=== PATIENT | female | born 1995 | race Caucasian/White ===

== ENCOUNTER 2017-10-17 17:29 | Emergency (ER) | payer BC ==
[~2017-10-17] VITALS: Ht 162.6 cm; Wt 63.4 kg
[~2017-10-17 17:29] MED LIST: AMOX875T3 PO; BCPILLS PO; LXP10 PO
[2017-10-17 17:41] VITALS: Ht 162.6 cm; Wt 63.4 kg
[2017-10-17] MEDS ORDERED: ONDA4TAB10 SL (18:49)
[2017-10-17] MEDS ORDERED: OMEP20CA59 PO (18:49)
--- NOTE | 2017-10-17 19:29 | EMERGENCY ROOM VISIT NOTE ---
History First contact with patient: 17:50 Chief Complaint: GI ASSESSMENT Stated Complaint: STOMACH PAIN,VOMITING UP MILD BLOOD Nursing Triage Summary: patient with week history of vomiting blood was seen at [facility] for this, they set up a GI assessment but today she vomited blood again and got scared. she states she has a burning in the stomach and the nasuea comes on quickly and then vomits and feels better History of Present Illness The patient is a 22 year old female who presents to the Emergency Room with complaints of a single episode of bloody emesis 6 days ago. This was only a one -time event. The patient reports that she did drink alcohol the night before, and has had an adverse reaction of nausea and vomiting when drinking alcohol in the past. The patient reports that she did notice some blood in her sputum today with nausea and epigastric pain. She did not have any vomiting today. The patient comes to the emergency department at the request of her parents. The patient was seen and examined at [facility] on Sunday with lab workup is normal. The only thing new that the patient has taken by mouth is minocycline for facial acne. This was started last week. [facility] was not sure if that is what has caused stomach irritation. 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 She also has a brother who recently relapsed with cocaine abuse, and his back and therapy. This has caused a lot of distress with the patient and family. The patient denies any prior history of peptic ulcers. She has occasionally had reflux in the past, again usually associated with alcohol. The patient denies any significant alcohol consumption this semester. She also denies any recent upper respiratory infection, cough, chest pain, shortness of breath, back pain, urinary symptoms or diarrhea. She reports that her stool has looked darker lately. She does not recall any medications or foods that could be darkening her stool. She rates her abdominal discomfort a 3 out of 10, and currently denies any nausea. Review of Systems HEENT: Denies dizziness, visual problems, hearing loss, tinnitus. Denies difficulty swallowing or oral lesions. PULMONARY: Denies cough, shortness of breath, sputum production or hemoptysis. CARDIOVASCULAR: Denies chest pain, palpitations, dyspnea on exertion, orthopnea or peripheral edema. GASTROINTESTINAL: See history of present illness. GENITOURINARY: Denies dysuria, frequency, urgency or nocturia. NEUROLOGIC: Denies history of epilepsy, CVA, TIA or chronic headaches. MUSCULOSKELETAL: Denies history of joint tenderness/swelling. SKIN: Denies rashes or lesions. PSYCHIATRIC: Denies history of depression or mental illness. ENDOCRINE: Denies history of diabetes or thyroid disorders. Past Medical/Surgical History Medical Problems: (1) Acne vulgaris Surgical Problems: (1) No history of previous surgery Family History FH: cancer FH: diabetes mellitus Social History Smoking Status: Never Smoker Alcohol Use: occasionally Marital Status: single, in relationship Housing Status: lives with roommate Occupation Status: [employer] student Current/Historical Medications Scheduled Control Pills ( Control Pills), 1 TAB PO DAILY Escitalopram Oxalate (Escitalopram Oxalate), 20 MG PO DAILY Omeprazole (Prilosec), 20 MG PO DAILY Ondasetron Odt (Zofran Odt), 4 MG SL Q6H Physical Exam Vital Signs Date Time Temp Pulse Resp B/P (MAP) Pulse Ox O2 Delivery O2 Flow Rate FiO2 10/17/17 17:41 36.8 89 20 138/87 99 Room Air Physical Exam CONSTITUTIONAL: Healthy and well nourished. Alert and oriented X 3 with positive affect. Patient does not appear in any acute distress. HEENT: Normocephalic, atraumatic. Pupils equal, round and reactive. No conjunctival injection or scleral icterus. OROPHARYNX: No posterior oropharyngeal erythema or postnasal bleed. NECK: Full active range of motion without discomfort. RESPIRATORY: Clear to auscultation bilaterally with no wheezing, crackles, rhonchi or stridor. CARDIOVASCULAR: Regular rate and rhythm with no murmurs, rubs or gallops. GASTROINTESTINAL: Bowel sounds present in all quadrants. Should has minimal epigastric tenderness to palpation. Negative Mario sign. Negative McBurney's point tenderness. Negative CVA tenderness. No abdominal rigidity, guarding or rebound. MUSCULOSKELETAL: Full range of motion of all joints without discomfort. INTEGUMENTARY: No rash or other significant dermatologic conditions noted. HEMATOLOGIC: No ecchymosis or petechiae noted. NEUROLOGIC: No focal neurologic deficits noted. Medical Decision & Procedures Laboratory Results Test 10/17/17 18:51 ED Course Patient history and physical exam were performed. Nurse's notes were reviewed. Vital signs were reviewed and were normal. The patient does have a copy of her labs on her cell phone. These were personally reviewed by me, showing lab work that was performed proximal to 48 hours ago. Her CMP was completely normal , including normal LFTs, lipase and amylase. Her CBC was also normal with a white count of 6.9, hemoglobin 13.3, hematocrit 41, platelet 275 and normal differential. A reference lab ferritin level was also normal at 15. The patient was able to provide a stool sample in the emergency department, and stool Hemoccult was negative. I did order H. pylori stool antigen testing as well. At this point, the patient was advised that her symptoms appear to be stable. Although this could certainly be an alcoholic gastritis, I do suspect that the patient has a bleeding gastric ulcer given her stress level. The patient was provided a prescription for Prilosec 20 mg daily 30 days, and Zofran ODT if needed for nausea. She was encouraged to refrain from alcohol, caffeine and NSAIDs. She may also take Zantac and Maalox/Gaviscon if needed for additional symptomatic relief. The patient reports that she does have an appointment scheduled with [facility] gastroenterology on 11/01. She was also provided contact information for the [facility] gastroenterology office (Dr. Luo). She was instructed to return to the emergency department for any progressively worsening pain, coffee-ground emesis , bloody/melanotic stools, chest pain, shortness of breath, weakness or other concerning symptoms. The patient was happy with plan of care, and denied any discomfort or nausea at the time of discharge. Medical Decision See previous section. I do feel that the patient is stable at this time for outpatient management. She is not anemic, her creatinine is normal and is afebrile. As the patient has not any persistent active hematemesis or rectal bleeding, I do not suspect that the patient's hemoglobin has dropped to a concerning level at this time. Her laboratory studies are not suggestive of pancreatitis, hepatitis or cholecystitis. She has minimal tenderness to palpation of the abdomen with no peritoneal signs. I do not suspect a surgical abdomen. Medication Reconcilliation Current Medication List: was personally reviewed by me Blood Pressure Screening Patient's blood pressure: Normal blood pressure Impression Primary Impression: Gastric ulcer Departure Information Dispostion Home / Self-Care Prescriptions Ondasetron Odt (ZOFRAN ODT) 4 Mg Tab 4 MG SL Q6H for Nausea, #10 TAB Prov: Jesus Alberto Lugo PA 10/17/17 Omeprazole (Prilosec) 20 Mg Capcr 20 MG PO DAILY for 30 Days, #30 CAP Prov: Jesus Alberto Lugo PA 10/17/17 Forms HOME CARE DOCUMENTATION FORM, IMPORTANT VISIT INFORMATION Patient Instructions My [facility] Additional Instructions Take Prilosec as prescribed. Over the next several days, also take Zantac 150 mg twice daily. You may also take Maalox or Gaviscon for additional relief of symptoms. Zofran if needed for nausea. Avoid alcohol, caffeine and ibuprofen/Motrin/Advil/Aleve/naproxen and aspirin. [place] diet for now -no spicy foods. Continue follow-up with with [facility] gastroenterology as currently scheduled. You may also try contacting the [facility] gastroenterology office (Dr. Luo) to see if they can get you in sooner. Return to the emergency department for any progressively worsening bleeding, dizziness, persistent vomiting or other concerning symptoms. Problem Qualifiers Primary Impression: Gastric ulcer Gastric ulcer chronicity: acute Gastric ulcer complication status: without hemorrhage or perforation Qualified Codes: K25.3 - Acute gastric ulcer without hemorrhage or perforation
[2017-10-17 20:28] VITALS: BP 138/87; PULSE 89; TEMP 36.8; O2SAT 99
== END 2017-10-17 20:29 | disposition home or self-care (01) ==
LOC: C.EDB 17:30 → C.EDA 20:29
DX: K25.9 Gastric ulcer, unspecified as acute or chronic, without hemorrhage or perforation (principal); Z79.899 Other long term (current) drug therapy; Z80.9 Family history of malignant neoplasm, unspecified; Z83.3 Family history of diabetes mellitus